=== PATIENT | female | born 1995 | race Caucasian/White ===

== ENCOUNTER 2017-11-23 12:53 | Observation (INO) | payer BC ==
[2017-11-23 14:05] VITALS: BP 118/75; PULSE 91
== END 2017-11-23 13:50 | disposition home or self-care (01) ==
LOC: OB 12:53
PROVIDERS: ADMIT Family Medicine; ATTEND Family Medicine
DX: Z34.83 Encounter for supervision of other normal pregnancy, third trimester (principal)
CPT/HCPCS: G0378

== ENCOUNTER 2017-12-12 10:09 | Observation (INO) | payer BC ==
[2017-12-12 10:32] VITALS: BP 122/75; PULSE 95
--- NOTE | 2017-12-12 11:05 | XRAY ---
Indication: Evaluate KADEN. Limited OB ultrasound performed to evaluate KADEN. 4 quadrant KADEN is 9.4 cm, previously 12.9 cm on August 30, 2017.
== END 2017-12-12 10:52 | disposition home or self-care (01) ==
LOC: OB 10:09
PROVIDERS: ADMIT Family Medicine; ATTEND Family Medicine
DX: Z34.83 Encounter for supervision of other normal pregnancy, third trimester (principal)
CPT/HCPCS: 76815; G0378; 59025

== ENCOUNTER 2017-12-20 08:03 | Observation (INO) | payer BC ==
--- NOTE | 2017-12-20 10:51 | XRAY ---
Exam: OB ultrasound greater than 14 weeks from 12/20/2017. Comparison: Limited OB ultrasound from 12/12/2017 for evaluation of amniotic fluid index and OB ultrasound greater than 14 weeks from 08/30/2017. Indication: Gestational diabetes. Findings: A single live intrauterine fetus is seen in the cephalic lie. The placenta appears to be posterior. No evidence of placenta abruption or definite previa is seen. However, the maternal cervical canal is not well identified due to the patient's low position of the head interfering with visualization of the cervical canal. The amniotic fluid index measured 13.91 cm which is within normal limits. body motion was seen by the technologist. The heart rate measured 130 bpm. Fluid is seen within the stomach and urinary bladder. The diaphragm is identified. The lips and nose appear unremarkable. Measurements of the biparietal diameter, head circumference, abdominal circumference, and femur length suggest a composite gestational age of 34 weeks 4 days plus or -2 weeks 3 days by size criteria. This represents satisfactory intrauterine growth since the prior exam from 08/30/2017. Estimated due date is 01/27/2018 by size criteria which is in good accordance with the gestational age by dates (01/28/2018). Estimated weight is 2454 g plus or -368 g (5 lbs. 7 oz.+ or -13 ounces) placing the fetus in the 47.9 percentile. size ratios are all within normal limits. Impression: 1. 34 week 4 day single live intrauterine fetus in the cephalic lie. Both body motion and cardiac activity was identified. heart rate measured 130 bpm. There has been satisfactory intrauterine growth of the fetus as compared to the prior OB exam from 08/30/2017. 2. The placenta is posterior. 3. A normal amount of amniotic fluid is seen with an amniotic fluid index of 13.91 cm. 4. The maternal cervical canal is not well seen due to the patient's head being low within the maternal pelvis. 5. Estimated weight is 5 lbs. 7 oz.+ or -13 ounces, placing the fetus in the 47.9 percentile.
[2017-12-20 11:01] VITALS: BP 122/82; PULSE 81
== END 2017-12-20 10:00 | disposition home or self-care (01) ==
LOC: OB 08:03 → UNDOADMOB 08:03 → UNDODISOB 10:00
PROVIDERS: ADMIT Family Medicine; ATTEND Family Medicine
DX: Z34.03 Encounter for supervision of normal first pregnancy, third trimester (principal)
CPT/HCPCS: 76805; G0378; 59025

== ENCOUNTER 2017-12-27 08:59 | Observation (INO) | payer BC ==
--- NOTE | 2017-12-27 10:15 | XRAY ---
Indication: KADEN. Limited OB ultrasound performed to evaluate KADEN. Four-quadrant KADEN is 16.8 cm, previously 9.4 cm on December 12, 2017.
[2017-12-27 10:24] VITALS: BP 119/71; PULSE 75
== END 2017-12-27 10:40 | disposition home or self-care (01) ==
LOC: OB 08:59
PROVIDERS: ADMIT Family Medicine; ATTEND Family Medicine
DX: Z34.03 Encounter for supervision of normal first pregnancy, third trimester (principal)
CPT/HCPCS: 59025; 76815; G0378

== ENCOUNTER 2018-01-03 07:11 | Observation (INO) | payer BC ==
[2018-01-03 09:03] VITALS: BP 143/65; PULSE 85
--- NOTE | 2018-01-03 21:35 | XRAY ---
Exam: Limited OB ultrasound from 01/03/2018. Comparison: Limited OB ultrasound from 12/27/2017. Indication: Measurement of amniotic fluid index. Findings: Four-quadrant AP measurements of the amniotic fluid revealed an amniotic fluid index of 14.01 cm. This previously measured 16.8 cm on 12/27/2017. The heart rate measured 126 bpm. Impression: 1. Amniotic fluid index measures 14.01 cm which is within normal limits for this stage of .
== END 2018-01-03 09:00 | disposition home or self-care (01) ==
LOC: OB 07:11
PROVIDERS: ADMIT Family Medicine; ATTEND Family Medicine
DX: Z34.83 Encounter for supervision of other normal pregnancy, third trimester (principal)
CPT/HCPCS: 76815; G0378; 59025

== ENCOUNTER 2018-01-12 12:01 | Observation (INO) | payer BC ==
[2018-01-12 12:44] VITALS: BP 138/87; PULSE 77
--- NOTE | 2018-01-12 13:21 | XRAY ---
Indication: well-being. Evaluate KADEN. Limited OB ultrasound performed to evaluate KADEN. There is a single viable intrauterine with heart rate 123 BPM. Four-quadrant KADEN is 10.3 cm, previously 13.4 cm on January 06, 2018.
== END 2018-01-12 13:05 | disposition home or self-care (01) ==
LOC: OB 12:01
PROVIDERS: ADMIT Family Medicine; ATTEND Family Medicine
DX: Z34.03 Encounter for supervision of normal first pregnancy, third trimester (principal)
CPT/HCPCS: 76815; 81003; G0378; 59025